=== PATIENT | male | born 1980 | race Caucasian/White ===

== ENCOUNTER 2018-04-28 03:25 | Emergency (ER) | payer OTHER ==
[2018-04-28] MEDS ORDERED: KETOROLAC 15 MG/1 ML SDV IVP ONE (03:41)
[2018-04-28] MEDS ORDERED: DEXAMETHASONE 4 MG/ML VIAL IVP ONE (03:41)
[2018-04-28] MEDS ORDERED: DIAZEPAM 5 MG/ML 1 ML SYR IVP ONE (03:41)
--- NOTE | 2018-04-28 03:53 | EDPHY ---
H & P Stated Complaint: woke up with severe R shoulder pain radiating down arm, hx pinched nerve Source: Patient Exam Limitations: No limitations - Personal History Current Tetanus/Diphtheria Vaccine: Unsure Current Tetanus Diphtheria and Acellular Pertussis (TDAP): Unsure - Medical/Surgical History Hx Asthma: No Hx Chronic Respiratory Disease: No Hx Diabetes: No Hx Cardiac Disease: No Hx Renal Disease: No Hx Cirrhosis: No Hx Alcoholism: No Hx HIV/AIDS: No Hx Splenectomy or Spleen Trauma: No Other PMH: denies - Social History Smoking Status: Never smoked Time Seen by Provider: 04/28/18 03:32 HPI/ROS: HPI The patient presents with right shoulder pain which radiates throughout his arm. The patient has a history of what he describes as a pinch nerve which was found on a cervical spine MRI about 1 year ago. At that time he had neck pain which radiated down his arm. He was treated with chiropractic D and rehab in [place]. A few weeks ago his symptoms returned and were associated with tingling of his arm. He began to feel better over the last several days. Tonight, he slept on his right side and awoke in the middle of the night with severe pain which begins in his right neck, radiates to his right shoulder and down his right hand most prominently in his index finger. This is associated with tingling without any weakness of the arm.. REVIEW OF SYSTEMS 10 systems were reviewed and negative with the exception of the elements mentioned in the history of present illness. PMHx: History of cervical radiculopathy as detailed above Soc Hx: Here with his and 2 children PHYSICAL General Appearance: Alert, uncomfortable appearing, arriving and pain Eyes: Pupils equal and round no pallor or injection ENT, Mouth: Mucous membranes moist Respiratory: There are no retractions, lungs are clear to auscultation Cardiovascular: Regular rate and rhythm , 2+ radial pulses Gastrointestinal: Abdomen is soft and non-tender, no masses, bowel sounds normal Neurological: A&O, sensation intact to light touch throughout arm, strength is 5/5 throughout right arm Skin: Warm and dry, no rashes Musculoskeletal: Neck is supple, nontender, there is tenderness along the trapezius muscle group, there is no tenderness through the arm Extremities: symmetrical, full range of motion Psychiatric: Patient is oriented X 3, there is no agitation (RiguzziKarina) I did not participate in the care of this patient (Finn Flores) Constitutional: Initial Vital Signs Temperature (C) 36.7 C 04/28/18 03:28 Heart Rate 64 04/28/18 03:28 Respiratory Rate 18 04/28/18 03:28 Blood Pressure 171/69 H 04/28/18 03:28 O2 Sat (%) 96 04/28/18 03:28 O2 Delivery Mode Room Air Allergies/Adverse Reactions: No Known Allergies Allergy (Unverified 04/28/18 03:26) Home Medications: Medication Instructions Recorded Diazepam [Valium 5 MG (*)] 5 mg PO TID PRN #15 tab 04/28/18 Diazepam [Valium 5 MG (*)] 5 mg PO TID PRN #15 tab 04/28/18 Lidocaine [Lidoderm] 1 each TP DAILY PRN 5 Days 04/28/18 adh..patch methylPREDNISolone [Medrol Dose 4 mg PO DAILY 6 Days ea 04/28/18 Sourav] Medical Decision Making Differential Diagnosis: 38-year-old male with known cervical radiculopathy now presents with recurrence of his pain associated with paresthesias of his right arm after sleeping on his right side. He has no neurologic deficits on exam. Is quite uncomfortable. In the emergency department, IV was placed and the patient was given medication for pain. His symptoms improved. His symptoms then returned. He was given additional medications. He had some dizziness with this and required IV fluids. He wanted to be monitored because he was worried about recurrence of his symptoms. The case will be signed out to Dr. Ignacio. Differential diagnosis includes cervical radiculopathy, shoulder impingement syndrome, muscle spasm. (Karina Riley) 8:20 a.m. I evaluated the patient. He has some return of his pain. He is concerned about having significant pain at home. We discussed expectations. The past 2 times he has had similar episodes of pain diagnosed as nerve impingement on MRI he states his pain has lasted for several months and gradually went away with rest and physical therapy and chiropractor. I told him that this would likely require similar time frame. He denies injuries. No infections. No weakness. He states that he simply slept on his right shoulder for the 1st time in several months. He had been avoiding doing so. We discussed options. We decided to try lidocaine patch. He then will try to go home and rest and take ibuprofen. I will also refer him to physical therapy. ( Michel Ignacio) - Data Points Medications Given: Discontinued Medications Dexamethasone (Decadron Injection) 8 mg IVP EDNOW ONE Stop: 04/28/18 03:42 Last Admin: 04/28/18 03:50 Dose: 8 mg Diazepam (Valium) 5 mg IVP EDNOW ONE Stop: 04/28/18 03:42 Last Admin: 04/28/18 03:50 Dose: 5 mg Hydromorphone HCl (Dilaudid) 0.5 mg IVP EDNOW ONE Stop: 04/28/18 04:14 Last Admin: 04/28/18 04:19 Dose: 0.5 mg Hydromorphone HCl (Dilaudid) 0.5 mg IVP EDNOW ONE Stop: 04/28/18 07:07 Last Admin: 04/28/18 07:14 Dose: 0.5 mg Lidocaine HCl 170 mg/ Sodium (Chloride) 117 mls @ 600 mls/hr IV EDNOW ONE Stop: 04/28/18 04:27 Last Admin: 04/28/18 05:02 Dose: 117 mls Sodium Chloride (Ns) 1,000 mls @ 0 mls/hr IV ONCE ONE PRN Reason: Wide Open Stop: 04/28/18 07:06 Last Admin: 04/28/18 07:13 Dose: 1,000 mls Ketorolac Tromethamine (Toradol) 15 mg IVP EDNOW ONE Stop: 04/28/18 03:42 Last Admin: 04/28/18 03:50 Dose: 15 mg Miscellaneous Medication (Icy Hot Lidocaine/Menthol 4%/1% Patch) 1 patch TD EDNOW ONE Stop: 04/28/18 08:18 Last Admin: 04/28/18 08:33 Dose: 1 patch Departure - Departure Disposition: Home, Routine, Self-Care Clinical Impression: Cervical radiculopathy Condition: Good Instructions: Cervical Radiculopathy (ED) Additional Instructions: Please take the medications as prescribed. I recommend you take ibuprofen 400 mg with acetaminophen 650 mg every 6 hr. You should take the Valium if your pain is severe after this. You can follow up with your primary care doctor, neurosurgeon, or paint process engineer and I have listed numbers below for you to call. Referrals: Keerthi Bates MD [Primary Care Provider] - As per Instructions Meño Damico MD [Medical Doctor] - As per Instructions Hira Camilo MD [Medical Doctor] - As per Instructions Prescriptions: Diazepam [Valium 5 MG (*)] 5 mg PO TID PRN #15 tab PRN Reason: Spasms Diazepam [Valium 5 MG (*)] 5 mg PO TID PRN #15 tab PRN Reason: Spasms Lidocaine [Lidoderm] 1 each TP DAILY PRN 5 Days adh..patch PRN Reason: Pain, Severe methylPREDNISolone [Medrol Dose Sourav] 4 mg PO DAILY 6 Days ea
[2018-04-28] MEDS ORDERED: HYDROmorphONE/DILAUDID 2 MG/ML INJ IVP ONE ×2 (04:13→07:06)
[2018-04-28] MEDS ORDERED: LIDOCAINE IV ONE (04:16)
[2018-04-28] MEDS ORDERED: NS IV ONE (04:16)
[2018-04-28] MEDS ORDERED: NS 1,000 ML IV ONE (07:05)
[2018-04-28] MEDS ORDERED: LIDOCAINE 4%/MENTHOL 1% PATCH TD ONE (08:17)
[2018-04-28 09:07] VITALS: BP 123/77
[2018-04-28] MEDS ORDERED: PATCH REMOVAL 1 EA PATCH TD SCH (21:00)
== END 2018-04-28 09:07 | disposition home or self-care (01) ==
DX: M54.12 Radiculopathy, cervical region (principal)
CPT/HCPCS: 96374; J1100; J1170; J1885; J3360

== ENCOUNTER 2018-04-30 00:39 | Emergency (ER) | payer OTHER ==
[2018-04-30] MEDS ORDERED: ONDANSETRON 4 MG/2 ML VIAL IVP ONE (01:32)
--- NOTE | 2018-04-30 01:32 | EDPHY ---
General Time Seen by Provider: 04/30/18 01:21 Narrative: CHIEF COMPLAINT: Arm pain, numbness, tingling HISTORY OF PRESENT ILLNESS: Patient presents by private vehicle with complaints of right arm pain, numbness , tingling or weakness. Symptoms started 2 nights ago. Awoke from sleep. He says it was moderate to severe. He was seen here recently and treated with symptomatic medications. He was told to come back for any worsening symptoms. The pain has significantly worsened today. It is unbearable at times. He has weakness of his elbow. He has difficulty holding objects in the right arm. Worse with palpation and turning his head or neck. He has no trauma or injury to the arm. He has mild cervical pain. He has no thoracic or lumbar pain. He has no saddle anesthesia. He has no incontinence of bowel or bladder. No other associated complaints or modifying factors. Right-hand dominant. REVIEW OF SYSTEMS: 10 systems were reviewed and negative with the exception of the elements mentioned in the history of present illness. SPECIALISTS: None currently PAST MEDICAL HISTORY: Orthopedics PAST SURGICAL HISTORY: No recent surgeries SOCIAL HISTORY: Nonsmoker FAMILY HISTORY: Noncontributory EXAMINATION: Vitals: Triage VS reviewed General Appearance: Alert, no distress. Pacing in the room. Nontoxic. Eyes: Pupils equal and round, no conjunctival pallor or injection ENT, Mouth: Mucous membranes moist Neck: Normal inspection, supple. No midline tenderness. There is positive axial load pain in the right upper extremity. Cardiovascular: Regular rate and rhythm Back: No tenderness of the thoracic or lumbar spine. Neurological: A&O, light sensory symmetric in the shoulders at C5. Light sensory is symmetric in the forearm. Reported decreased sensation of the dorsum of the right hand. Strength is 1 degree less in the elbow and wrist on the right upper extremity. Triceps reflexes symmetric. Skin: Warm and dry, no rash no petechiae or purpura. No laceration. No cyanosis or pallor. No cellulitis. Extremities: Tenderness throughout the right upper extremity with no bony tenderness. Psychiatric: Mood and affect normal DIFFERENTIAL DIAGNOSES: Including but not limited to cervical radiculopathy, cervical nerve root compression, acute cord compression MDM: 1:20 a.m. Increasing right upper extremity pain with reported paresthesia and some weakness in the right wrist and elbow. There is no evidence of acute cord compression or cauda equina. He does have symptoms that match down through the C7 dermatome on the right upper extremity. He does appear to be in significant pain, thus I have ordered IV placed for pain control. I do feel he warrants MRI of the cervical spine emergently. This has been ordered. 2:30 a.m. Additional pain medication ordered. MRI pending. 3:00 a.m. Notified by radiologist Dr. Osorio. We discussed the MRI findings of the cervical spine. Disc herniation with no acute cord compression. I re- evaluated the patient. His pain is significantly improved. I did offer admission to the hospital and declines. He would like to go home. We discussed discharge with Percocet pain medication. We discussed continuation of his Medrol Dosepak. We discussed not combining his Valium and Percocet. He has instructions to follow up with Neurosurgery. He has ED precautions discussed. He is comfortable this plan. Discharged stable condition. SUPERVISION: Patient was independently examined, but I discussed the case with my secondary supervising physician Dr. Reyes CONSULTATION: None - History Smoking Status: Never smoked - Objective Vital Signs: Initial Vital Signs Temperature (C) 98.1 F 04/30/18 00:47 Heart Rate 76 04/30/18 00:47 Respiratory Rate 16 04/30/18 00:47 Blood Pressure 147/76 H 04/30/18 00:47 O2 Sat (%) 95 04/30/18 00:47 O2 Delivery Mode Room Air Allergies/Adverse Reactions: No Known Allergies Allergy (Unverified 04/28/18 03:26) Home Medications: Medication Instructions Recorded Diazepam [Valium 5 MG (*)] 5 mg PO TID PRN #15 tab 04/28/18 Diazepam [Valium 5 MG (*)] 5 mg PO TID PRN #15 tab 04/28/18 Lidocaine [Lidoderm] 1 each TP DAILY PRN 5 Days 04/28/18 adh..patch methylPREDNISolone [Medrol Dose 4 mg PO DAILY 6 Days ea 04/28/18 Sourav] oxyCODONE HCL/ACETAMINOPHEN 1 each PO Q4-6PRN PRN #12 tablet 04/30/18 [Percocet 5-325 mg Tablet] Medications Given: Discontinued Medications Dexamethasone (Decadron Injection) 10 mg IVP EDNOW ONE Stop: 04/30/18 01:44 Last Admin: 04/30/18 02:03 Dose: 10 mg Hydromorphone HCl (Dilaudid) 0.5 mg IVP EDNOW ONE Stop: 04/30/18 02:18 Last Admin: 04/30/18 02:22 Dose: 0.5 mg Morphine Sulfate (Morphine) 4 mg IVP EDNOW ONE Stop: 04/30/18 01:33 Last Admin: 04/30/18 01:58 Dose: 4 mg Ondansetron HCl (Zofran) 4 mg IVP EDNOW ONE Stop: 04/30/18 01:33 Last Admin: 04/30/18 01:56 Dose: 4 mg Departure - Departure Disposition: Home, Routine, Self-Care Clinical Impression: Radicular pain Condition: Good Instructions: Oxycodone/Acetaminophen (By mouth), Cervical Radiculopathy (ED), Arm Pain (ED) Additional Instructions: 1. Continue your previously prescribed Medrol Dosepak 2. Percocet pain medication as prescribed as needed 3. You will need to call the neurosurgeon on Wednesday morning for definitive care 4. Return here for intractable pain, numbness, tingling, weakness Referrals: Donte Mcmanus MD [Medical Doctor] - As per Instructions Prescriptions: oxyCODONE HCL/ACETAMINOPHEN [Percocet 5-325 mg Tablet] 1 each PO Q4-6PRN PRN # 12 tablet PRN Reason: Pain, Breakthrough
[2018-04-30] MEDS ORDERED: DEXAMETHASONE 10 MG/ML VIAL IVP ONE (01:43)
[2018-04-30] MEDS ORDERED: DEXAMETHASONE 4 MG/ML VIAL ONE (01:55)
[2018-04-30] MEDS ORDERED: HYDROmorphONE/DILAUDID 2 MG/ML INJ IVP ONE (02:17)
[2018-04-30 02:53] VITALS: BP 115/52
[2018-04-30] MEDS ORDERED: OXYCODONE/APAP 5/325MG PREPACK#4 BTL TAKEHOME ONE (03:19)
== END 2018-04-30 03:37 | disposition home or self-care (01) ==
DX: M54.12 Radiculopathy, cervical region (principal); M79.601 Pain in right arm; R20.0 Anesthesia of skin; R20.2 Paresthesia of skin
CPT/HCPCS: 96374; J1100; J1170; J2270; J2405